=== PATIENT | female | born 1975 | race African-American/Black ===

== ENCOUNTER 2016-11-02 14:49 | Emergency (ER) | payer OTHER ==
[~2016-11-02 14:49] MED LIST: B/P MEDS; CARVEDILOL12.5 M1 PO; CARVEDILOL25 M1 PO; CYPROHEPTADINE H4 M1 PO; DOK100 M2 PO; HYDRALAZINE HCL25 M1 PO; KEFLEX500 M4 PO; KLOR-CON M20 MEQ/TAB PO; LISINOPRIL-HCT1 EAC2 PO; LISINOPRIL-HCT1 EAC3 PO; NORVASC2.5 M1 PO
[2016-11-02] MEDS ORDERED: COREG25 M1 PO (17:38)
[2016-11-02] MEDS ORDERED: POTASSIUM CHLO20 ME3 PO (17:39)
[2016-11-02] MEDS ORDERED: NORVASC5 M2 PO (17:39)
[2016-11-02 18:29] LABS: BASO % 0.3 % (0-2); EOS % 0.3 % (0-7); HCT-HEMATOCRIT 39.4 % (34.0-49.0); HGB-HEMOGLOBIN 12.6 gm/dl (12.0-15.5); IMMATURE GRANULOCYTES ABSOLUTE 0.02 tho/cmm (0-0.03); IMMATURE GRANULOCYTES PERCENT 0.3 % (0-0.3); LYMPH % 33.3 % (20-45); LYMPH ABSOLUTE COUNT 2.6 tho/cmm (0.8-4.5); MCV (MEAN CELL VOLUME) 81.2 fl (82.0-96.0); MEAN PLATELET VOLUME 11.2 cmc (9.4-12.4); MONO % 8.8 % (0-12); MONOCYTE ABSOLUTE COUNT 0.7 tho/cmm (0.0-1.2); NEUTROPHIL ABSOLUTE COUNT 4.5 tho/cmm (1.6-8.0); NEUTROPHIL-AUTOMATED 4.5 tho/cmm (1.6-8.0); PLATELET COUNT 234 tho/cmm (150-450); RED BLOOD COUNT 4.85 mil/cmm (4.00-5.20); RED CELL DISTRIBUTION WIDTH 14.4 % (12.4-16.4); WHITE BLOOD COUNT 7.9 tho/cmm (4.0-10.0)
[2016-11-02 18:43] LABS: ANION GAP 11 mmol/L (0-20); BLOOD UREA NITROGEN 23 mg/dl (6-24); CALCIUM 8.8 mg/dl (8.5-10.5); CARBON DIOXIDE-VENOUS 26 mmol/L (22-32); CHLORIDE 107 mmol/l (96-110); CREATININE 1.16 mg/dl (0.50-1.10); GLUCOSE 116 mg/dL (70-110); SODIUM 140 mmol/L (135-145); eGFR VALUE FOR BLACK 67 mL/Min
[2016-11-02 18:47] LABS: PREGNANCY-SERUM NEGATIVE (NEGATIVE)
[2016-11-02 18:55] LABS: POTASSIUM 3.7 mmol/L (3.7-5.1)
== END 2016-11-02 20:52 ==
LOC: EDMED 14:49
PROVIDERS: Physician Assistant
DX: R22.1 Localized swelling, mass and lump, neck (principal); I10 Essential (primary) hypertension
CPT/HCPCS: J7030; Q9967